=== PATIENT | female | born 1930 | race American Indian/Alaskan Native ===

== ENCOUNTER 2020-10-07 04:09 | Day surgery (SDC) | payer OTHER ==
[2020-10-03 14:59] VITALS: BMI 24.2
[2020-10-07] MEDS ORDERED: ISOSULFAN BLUE 50 MG/5 ML VIAL SQ ONE (08:16)
[2020-10-07] MEDS ORDERED: LIDOCAINE HCL 1%, 10 MG/ML (20ML VIAL) ONE (08:17)
[2020-10-07] MEDS ORDERED: ceFAZolin SODIUM 1 GM VIAL ONE (10:07)
[2020-10-07] MEDS ORDERED: LIDOCAINE HCL/PF 2% SDV 5ML VIAL ONE (10:07)
[2020-10-07] MEDS ORDERED: ceFAZolin SODIUM 1 GM VIAL IVPB ONE (10:58)
[2020-10-07] MEDS ORDERED: ePHEDrine SULFATE 50 MG/1 ML AMPULE ONE (11:12)
[2020-10-07] MEDS ORDERED: ONDANSETRON 4 MG/2 ML VIAL IVPUSH PRN (12:00)
[2020-10-07] MEDS ORDERED: LACTATED RINGERS SOLUTION 1,000 ML IV SCH (12:00)
[2020-10-07] MEDS ORDERED: ACETAMINOPHEN 325 MG TABLET (FP) PO PRN (12:00)
[2020-10-07] MEDS ORDERED: KETOROLAC TROMETHAMINE 15 MG/ML VIAL IM PRN (12:01)
[2020-10-07] MEDS ORDERED: KETOROLAC TROMETHAMINE 30 MG/1 ML VIAL ONE (13:05)
[2020-10-07 15:49] VITALS: BP 130/70; PULSE 69; TEMP 97
== END 2020-10-07 15:40 | disposition home or self-care (01) ==
LOC: JASU-SURG 04:09
PROVIDERS: ATTEND Surgery
PROC: 0HBU0ZZ Excision of Left Breast, Open Approach (ICD-10-PCS; principal; 2020-10-07 10:00)
DX: C50.912 Malignant neoplasm of unspecified site of left female breast (principal)
CPT/HCPCS: 78195-TC; 88307-TC; 94760; A9541

== ENCOUNTER 2020-11-14 07:13 | Day surgery (SDC) | payer OTHER ==
[2020-11-14 15:12] LABS: BASO % 0.9 % (0-2.0); EOS % 3.8 % (0-4.5); HEMATOCRIT 38.4 % (32.4-45.2); HEMOGLOBIN 13.1 GM/dL (10.7-15.3); LYMPH % 29.9 % (8-40); MCH 30.9 pg (25.7-33.7); MCHC 34.1 g/dl (32.0-36.0); MEAN CELL VOLUME 90.6 fl (80-96); MEAN PLT VOLUME 8.3 fl (7.5-11.1); MONO % 8.9 % (3.8-10.2); NEUT % 56.5 % (42.8-82.8); PLATELET COUNT 179 K/MM3 (134-434); RBC 4.25 M/mm3 (3.60-5.2); RDW 14.4 % (11.6-15.6); WHITE BLOOD COUNT 4.5 K/mm3 (4.0-10.0)
[2020-11-14] MEDS ORDERED: ACETAMINOPHEN 325 MG TABLET (FP) PO ONE (15:14)
[2020-11-14] MEDS ORDERED: DIPHENHYDRAMINE 25 MG in SODIUM CHLORIDE 50 ML IVPB ONE (15:30)
[2020-11-14 15:32] LABS: CALCIUM 9.8 mg/dL (8.5-10.1)
[2020-11-14 15:33] LABS: ALBUMIN 3.6 g/dl (3.4-5.0); BLOOD UREA NITROGEN 19.6 mg/dL (7-18)
[2020-11-14 15:36] LABS: CREATININE 0.7 mg/dL (0.55-1.3)
[2020-11-14 15:38] LABS: BILIRUBIN,TOTAL 0.4 mg/dL (0.2-1); TOT PROT 6.8 g/dl (6.4-8.2)
[2020-11-14] MEDS ORDERED: TRASTUZUMAB-ANNS 440 MG in SODIUM CHLORIDE 250 ML IVPB ONE (16:00)
[2020-11-14 17:51] VITALS: TEMP 97.8
[2020-11-14 19:00] VITALS: BP 114/61; PULSE 69
== END 2020-11-14 19:01 | disposition home or self-care (01) ==
LOC: JONCCHEMO 07:13
PROVIDERS: ATTEND Internal Medicine Hematology & Oncology
DX: Z51.11 Encounter for antineoplastic chemotherapy (principal); C50.912 Malignant neoplasm of unspecified site of left female breast
CPT/HCPCS: 36415; 80053; 85025; 96375; 96413

== ENCOUNTER 2020-12-04 11:02 | Day surgery (SDC) | payer OTHER ==
[2020-12-04 16:28] LABS: BASO % 1.1 % (0-2.0); EOS % 3.7 % (0-4.5); HEMATOCRIT 38.3 % (32.4-45.2); HEMOGLOBIN 12.7 GM/dL (10.7-15.3); LYMPH % 24.2 % (8-40); MCH 30.2 pg (25.7-33.7); MCHC 33.2 g/dl (32.0-36.0); MEAN CELL VOLUME 90.8 fl (80-96); MONO % 8.6 % (3.8-10.2); NEUT % 62.4 % (42.8-82.8); PLATELET COUNT 181 10^3/uL (134-434); RBC 4.21 M/mm3 (3.60-5.2); RDW 14.7 % (11.6-15.6); WHITE BLOOD COUNT 5.5 K/mm3 (4.0-10.0)
[2020-12-04] MEDS ORDERED: ACETAMINOPHEN 325 MG TABLET (FP) PO ONE (16:34)
[2020-12-04 16:50] LABS: ALBUMIN 3.7 g/dl (3.4-5.0); BLOOD UREA NITROGEN 19.4 mg/dL (7-18); CALCIUM 10.4 mg/dL (8.5-10.1)
[2020-12-04 16:54] LABS: BILIRUBIN,TOTAL 0.5 mg/dL (0.2-1); CREATININE 0.7 mg/dL (0.55-1.3)
[2020-12-04] MEDS ORDERED: DIPHENHYDRAMINE 25 MG in SODIUM CHLORIDE 50 ML IVPB ONE (17:00)
[2020-12-04] MEDS ORDERED: TRASTUZUMAB ANNS IVPB ONE (17:45)
[2020-12-04] MEDS ORDERED: SODIUM CHLORIDE IVPB ONE (17:45)
[2020-12-04 19:38] VITALS: TEMP 98.2
[2020-12-04 19:41] VITALS: BP 121/74; PULSE 74
== END 2020-12-04 19:30 | disposition home or self-care (01) ==
LOC: JONCCHEMO 11:02
PROVIDERS: ATTEND Internal Medicine Hematology & Oncology
DX: Z51.11 Encounter for antineoplastic chemotherapy (principal); C50.912 Malignant neoplasm of unspecified site of left female breast
CPT/HCPCS: 36415; 80053; 85025; 96375; 96413; Q5117

== ENCOUNTER 2020-12-25 05:17 | Day surgery (SDC) | payer OTHER ==
[2020-12-25] MEDS ORDERED: HYALURONIDASE SQ ONE (10:00)
[2020-12-25] MEDS ORDERED: TRASTUZUMAB SQ ONE (10:00)
[2020-12-25] MEDS ORDERED: [UNRECOGNIZED DRUG - OTHER] SQ ONE (10:00)
[2020-12-25 16:18] LABS: BASO % 0.9 % (0-2.0); EOS % 2.5 % (0-4.5); HEMATOCRIT 38.8 % (32.4-45.2); LYMPH % 29.2 % (8-40); MCH 30.5 pg (25.7-33.7); MCHC 33.6 g/dl (32.0-36.0); MEAN CELL VOLUME 90.8 fl (80-96); MEAN PLT VOLUME 7.1 fl (7.5-11.1); MONO % 8.9 % (3.8-10.2); NEUT % 58.5 % (42.8-82.8); PLATELET COUNT 198 10^3/uL (134-434); RBC 4.27 M/mm3 (3.60-5.2); RDW 14.6 % (11.6-15.6); WHITE BLOOD COUNT 5.5 K/mm3 (4.0-10.0)
[2020-12-25] MEDS ORDERED: ACETAMINOPHEN 325 MG TABLET (FP) PO ONE (16:26)
[2020-12-25] MEDS ORDERED: diphenhydrAMINE HCL 25 MG CAPSULE (FP) PO ONE (16:27)
[2020-12-25 16:41] LABS: ALBUMIN 3.6 g/dl (3.4-5.0); CALCIUM 10.1 mg/dL (8.5-10.1)
[2020-12-25 16:42] LABS: BLOOD UREA NITROGEN 24.6 mg/dL (7-18)
[2020-12-25 16:44] LABS: CREATININE 0.8 mg/dL (0.55-1.3)
[2020-12-25 16:46] LABS: BILIRUBIN,TOTAL 0.5 mg/dL (0.2-1)
[2020-12-25 17:46] VITALS: BP 131/84; PULSE 85; TEMP 98.2
== END 2020-12-25 17:52 | disposition home or self-care (01) ==
LOC: JONCCHEMO 05:17
PROVIDERS: ATTEND Internal Medicine Hematology & Oncology
PROC: 3E013GC Introduction of Other Therapeutic Substance into Subcutaneous Tissue, Percutaneous Approach (ICD-10-PCS; principal; 2020-12-25)
DX: C50.912 Malignant neoplasm of unspecified site of left female breast (principal); Z76.89 Persons encountering health services in other specified circumstances
CPT/HCPCS: 36415; 80053; 85025; 96372; J9356

== ENCOUNTER 2021-01-14 08:43 | Day surgery (SDC) | payer OTHER ==
[2021-01-14] MEDS ORDERED: TRASTUZUMAB SQ ONE (11:00)
[2021-01-14] MEDS ORDERED: HYALURONIDASE SQ ONE (11:00)
[2021-01-14] MEDS ORDERED: [UNRECOGNIZED DRUG - OTHER] SQ ONE (11:00)
[2021-01-14 16:00] LABS: HEMATOCRIT 37.5 % (32.4-45.2); HEMOGLOBIN 12.8 GM/dL (10.7-15.3); LYMPH % 28.2 % (8-40); MCH 31.1 pg (25.7-33.7); MCHC 34.2 g/dl (32.0-36.0); MEAN CELL VOLUME 90.9 fl (80-96); MEAN PLT VOLUME 7.4 fl (7.5-11.1); MONO % 9.7 % (3.8-10.2); NEUT % 57.1 % (42.8-82.8); PLATELET COUNT 179 10^3/uL (134-434); RBC 4.13 M/mm3 (3.60-5.2); RDW 14.4 % (11.6-15.6); WHITE BLOOD COUNT 4.9 K/mm3 (4.0-10.0)
[2021-01-14] MEDS ORDERED: ACETAMINOPHEN 325 MG TABLET (FP) PO ONE (16:35)
[2021-01-14] MEDS ORDERED: diphenhydrAMINE HCL 25 MG CAPSULE (FP) PO ONE (16:36)
[2021-01-14 16:41] LABS: ALBUMIN 3.5 g/dl (3.4-5.0); BILIRUBIN,TOTAL 0.4 mg/dL (0.2-1); BLOOD UREA NITROGEN 22.4 mg/dL (7-18); CALCIUM 9.6 mg/dL (8.5-10.1); CREATININE 0.8 mg/dL (0.55-1.3)
[2021-01-15 11:49] VITALS: BP 128/76; PULSE 74; TEMP 97.5
== END 2021-01-14 17:54 | disposition home or self-care (01) ==
LOC: JONCCHEMO 08:43
PROVIDERS: ATTEND Internal Medicine Hematology & Oncology
DX: Z51.11 Encounter for antineoplastic chemotherapy (principal); C50.912 Malignant neoplasm of unspecified site of left female breast
CPT/HCPCS: 36415; 80053; 85025; 96401; J9356

== ENCOUNTER 2021-02-04 07:08 | Day surgery (SDC) | payer OTHER ==
[2021-02-04] MEDS ORDERED: [UNRECOGNIZED DRUG - OTHER] SQ ONE (10:00)
[2021-02-04] MEDS ORDERED: HYALURONIDASE SQ ONE (10:00)
[2021-02-04] MEDS ORDERED: TRASTUZUMAB SQ ONE (10:00)
[2021-02-04 15:56] LABS: BASO % 0.9 % (0-2.0); EOS % 3.1 % (0-4.5); HEMATOCRIT 35.9 % (32.4-45.2); HEMOGLOBIN 12.3 GM/dL (10.7-15.3); MCH 31.1 pg (25.7-33.7); MCHC 34.4 g/dl (32.0-36.0); MEAN CELL VOLUME 90.5 fl (80-96); MEAN PLT VOLUME 7.3 fl (7.5-11.1); MONO % 8.2 % (3.8-10.2); NEUT % 62.8 % (42.8-82.8); PLATELET COUNT 182 10^3/uL (134-434); RBC 3.96 M/mm3 (3.60-5.2); RDW 13.9 % (11.6-15.6); WHITE BLOOD COUNT 4.9 K/mm3 (4.0-10.0)
[2021-02-04 16:23] LABS: ALBUMIN 3.5 g/dl (3.4-5.0); BLOOD UREA NITROGEN 22.9 mg/dL (7-18)
[2021-02-04 16:26] LABS: CREATININE 0.7 mg/dL (0.55-1.3)
[2021-02-04 16:28] LABS: BILIRUBIN,TOTAL 0.5 mg/dL (0.2-1); TOT PROT 6.9 g/dl (6.4-8.2)
[2021-02-04 17:09] VITALS: BP 126/57; PULSE 79; TEMP 98.2
== END 2021-02-04 17:25 | disposition home or self-care (01) ==
LOC: JONCCHEMO 07:08
PROVIDERS: ATTEND Internal Medicine Hematology & Oncology
DX: Z51.11 Encounter for antineoplastic chemotherapy (principal); C50.912 Malignant neoplasm of unspecified site of left female breast
CPT/HCPCS: 36415; 80053; 85025; 96401; J9356

== ENCOUNTER 2021-03-04 08:12 | Day surgery (SDC) | payer OTHER ==
[2021-03-04] MEDS ORDERED: [UNRECOGNIZED DRUG - OTHER] SQ ONE (10:00)
[2021-03-04] MEDS ORDERED: HYALURONIDASE SQ ONE (10:00)
[2021-03-04] MEDS ORDERED: TRASTUZUMAB SQ ONE (10:00)
[2021-03-04 16:02] LABS: EOS % 5.6 % (0-4.5); HEMATOCRIT 36.7 % (32.4-45.2); HEMOGLOBIN 12.4 GM/dL (10.7-15.3); MCH 30.7 pg (25.7-33.7); MCHC 33.9 g/dl (32.0-36.0); MEAN CELL VOLUME 90.5 fl (80-96); MEAN PLT VOLUME 7.3 fl (7.5-11.1); MONO % 10.4 % (3.8-10.2); PLATELET COUNT 179 10^3/uL (134-434); RBC 4.05 M/mm3 (3.60-5.2); RDW 13.4 % (11.6-15.6); WHITE BLOOD COUNT 4.7 K/mm3 (4.0-10.0)
[2021-03-04 16:19] LABS: CALCIUM 9.6 mg/dL (8.5-10.1)
[2021-03-04 16:20] LABS: ALBUMIN 3.4 g/dl (3.4-5.0); BLOOD UREA NITROGEN 17.6 mg/dL (7-18)
[2021-03-04 16:23] LABS: BILIRUBIN,DIRECT 0.1 mg/dL (0.0-0.2); CREATININE 0.7 mg/dL (0.55-1.3)
[2021-03-04 16:25] LABS: BILIRUBIN,TOTAL 0.4 mg/dL (0.2-1); TOT PROT 6.8 g/dl (6.4-8.2)
[2021-03-04 18:54] VITALS: BP 109/67; PULSE 81; TEMP 97.8
== END 2021-03-04 17:27 | disposition home or self-care (01) ==
LOC: JONCCHEMO 08:12
PROVIDERS: ATTEND Internal Medicine Hematology & Oncology
DX: Z51.11 Encounter for antineoplastic chemotherapy (principal); C50.912 Malignant neoplasm of unspecified site of left female breast
CPT/HCPCS: 36415; 80048; 80076; 85025; 96401; J9356

== ENCOUNTER 2021-03-25 07:32 | Day surgery (SDC) | payer OTHER ==
[2021-03-25] MEDS ORDERED: TRASTUZUMAB SQ ONE (11:00)
[2021-03-25] MEDS ORDERED: [UNRECOGNIZED DRUG - OTHER] SQ ONE (11:00)
[2021-03-25] MEDS ORDERED: HYALURONIDASE SQ ONE (11:00)
[2021-03-25 17:11] LABS: BASO % 1.2 % (0-2.0); EOS % 4.8 % (0-4.5); HEMATOCRIT 37.6 % (32.4-45.2); HEMOGLOBIN 12.6 GM/dL (10.7-15.3); LYMPH % 24.9 % (8-40); MCH 30.4 pg (25.7-33.7); MCHC 33.4 g/dl (32.0-36.0); MEAN CELL VOLUME 90.9 fl (80-96); MEAN PLT VOLUME 8.2 fl (7.5-11.1); MONO % 9.1 % (3.8-10.2); RBC 4.13 M/mm3 (3.60-5.2); WHITE BLOOD COUNT 6.6 K/mm3 (4.0-10.0)
[2021-03-25 17:32] LABS: CALCIUM 9.9 mg/dL (8.5-10.1)
[2021-03-25 17:33] LABS: ALBUMIN 3.4 g/dl (3.4-5.0); BLOOD UREA NITROGEN 15.6 mg/dL (7-18)
[2021-03-25 17:36] LABS: CREATININE 0.7 mg/dL (0.55-1.3); PLATELET COUNT 206 10^3/uL (134-434); PLATELET ESTIMATE ADEQUATE
[2021-03-25 17:38] LABS: BILIRUBIN,TOTAL 0.5 mg/dL (0.2-1); TOT PROT 7.1 g/dl (6.4-8.2)
[2021-03-25 18:09] VITALS: BP 122/78; PULSE 97; TEMP 98.9
== END 2021-03-25 17:55 | disposition home or self-care (01) ==
LOC: JONCCHEMO 07:32
PROVIDERS: ATTEND Internal Medicine Hematology & Oncology
PROC: 3E013GC Introduction of Other Therapeutic Substance into Subcutaneous Tissue, Percutaneous Approach (ICD-10-PCS; principal; 2021-03-25)
DX: C50.912 Malignant neoplasm of unspecified site of left female breast (principal); Z76.89 Persons encountering health services in other specified circumstances
CPT/HCPCS: 36415; 80053; 85025; 96372; J9356

== ENCOUNTER 2021-04-22 07:37 | Day surgery (SDC) | payer OTHER ==
[2021-04-22] MEDS ORDERED: HYALURONIDASE SQ ONE (11:00)
[2021-04-22] MEDS ORDERED: TRASTUZUMAB SQ ONE (11:00)
[2021-04-22] MEDS ORDERED: [UNRECOGNIZED DRUG - OTHER] SQ ONE (11:00)
[2021-04-22] MEDS ORDERED: DENOSUMAB 120 MG/1.7 ML VIAL SQ ONE ×2 (15:58→16:11)
[2021-04-22] MEDS ORDERED: DENOSUMAB 60 MG/ML DISP.SYRIN SQ ONE (16:15)
[2021-04-22 16:44] LABS: BASO % 1.3 % (0-2.0); HEMATOCRIT 35.5 % (32.4-45.2); LYMPH % 22.6 % (8-40); MCH 30.3 pg (25.7-33.7); MCHC 33.7 g/dl (32.0-36.0); MEAN CELL VOLUME 89.7 fl (80-96); MEAN PLT VOLUME 7.9 fl (7.5-11.1); MONO % 10.8 % (3.8-10.2); NEUT % 59.3 % (42.8-82.8); PLATELET COUNT 215 10^3/uL (134-434); RBC 3.96 M/mm3 (3.60-5.2); RDW 13.4 % (11.6-15.6); WHITE BLOOD COUNT 4.8 K/mm3 (4.0-10.0)
[2021-04-22 17:06] LABS: ALBUMIN 3.3 g/dl (3.4-5.0); CALCIUM 9.5 mg/dL (8.5-10.1)
[2021-04-22 17:07] LABS: BLOOD UREA NITROGEN 16.4 mg/dL (7-18)
[2021-04-22 17:10] LABS: CREATININE 0.7 mg/dL (0.55-1.3)
[2021-04-22 17:11] LABS: BILIRUBIN,TOTAL 0.4 mg/dL (0.2-1); TOT PROT 6.8 g/dl (6.4-8.2)
[2021-04-22 18:04] VITALS: BP 121/74; PULSE 76; TEMP 97.9
== END 2021-04-22 18:07 | disposition home or self-care (01) ==
LOC: JONCCHEMO 07:37
PROVIDERS: ATTEND Internal Medicine Hematology & Oncology
PROC: 3E01305 Introduction of Other Antineoplastic into Subcutaneous Tissue, Percutaneous Approach (ICD-10-PCS; principal; 2021-04-22)
PROC: 3E013GC Introduction of Other Therapeutic Substance into Subcutaneous Tissue, Percutaneous Approach (ICD-10-PCS; 2021-04-22)
DX: Z51.11 Encounter for antineoplastic chemotherapy (principal); C50.912 Malignant neoplasm of unspecified site of left female breast
CPT/HCPCS: 36415; 80053; 85025; 96372; 96402; J0897; J9356

== ENCOUNTER 2021-05-21 08:25 | Day surgery (SDC) | payer OTHER ==
[~2021-05-21 08:25] MED LIST: HYALURONIDASE SQ ONE; TRASTUZUMAB SQ ONE; [UNRECOGNIZED DRUG - OTHER] SQ ONE
[2021-05-21 11:36] LABS: BASO % 0.7 % (0-2.0); EOS % 2.4 % (0-4.5); HEMATOCRIT 38.5 % (32.4-45.2); LYMPH % 17.9 % (8-40); MCHC 33.6 g/dl (32.0-36.0); MEAN CELL VOLUME 89.2 fl (80-96); MEAN PLT VOLUME 7.4 fl (7.5-11.1); MONO % 5.9 % (3.8-10.2); NEUT % 73.1 % (42.8-82.8); PLATELET COUNT 195 10^3/uL (134-434); RBC 4.32 M/mm3 (3.60-5.2); RDW 14.3 % (11.6-15.6); WHITE BLOOD COUNT 6.9 K/mm3 (4.0-10.0)
[2021-05-21 11:57] LABS: CALCIUM 10.1 mg/dL (8.5-10.1)
[2021-05-21 11:58] LABS: ALBUMIN 3.4 g/dl (3.4-5.0); BLOOD UREA NITROGEN 18.9 mg/dL (7-18); MAGNESIUM 2.5 mg/dL (1.8-2.4)
[2021-05-21] MEDS ORDERED: HYALURONIDASE SQ ONE (12:00)
[2021-05-21] MEDS ORDERED: [UNRECOGNIZED DRUG - OTHER] SQ ONE (12:00)
[2021-05-21] MEDS ORDERED: TRASTUZUMAB SQ ONE (12:00)
[2021-05-21 12:01] LABS: CREATININE 0.8 mg/dL (0.55-1.3)
[2021-05-21 12:03] LABS: BILIRUBIN,TOTAL 0.7 mg/dL (0.2-1)
[2021-05-21 12:26] LABS: ERYTHROCYTE SEDIMENTATION RATE 36 mm/hr (0-30)
[2021-05-21 14:56] VITALS: PULSE 94; TEMP 98.6
[2021-05-21 15:01] VITALS: BP 102/51
== END 2021-05-21 14:00 | disposition home or self-care (01) ==
LOC: JONCCHEMO 08:25
PROVIDERS: ATTEND Internal Medicine Hematology & Oncology
DX: Z51.11 Encounter for antineoplastic chemotherapy (principal); C50.912 Malignant neoplasm of unspecified site of left female breast
CPT/HCPCS: 36415; 80053; 82746; 83615; 83735; 85025; 85651; 96401; J9356

== ENCOUNTER 2021-06-10 07:00 | Day surgery (SDC) | payer OTHER ==
[2021-06-10 16:34] LABS: BASO % 0.6 % (0-2.0); EOS % 0.7 % (0-4.5); HEMATOCRIT 37.7 % (32.4-45.2); HEMOGLOBIN 12.7 GM/dL (10.7-15.3); LYMPH % 17.1 % (8-40); MCH 30.2 pg (25.7-33.7); MCHC 33.8 g/dl (32.0-36.0); MEAN CELL VOLUME 89.2 fl (80-96); MONO % 6.2 % (3.8-10.2); NEUT % 75.4 % (42.8-82.8); PLATELET COUNT 184 10^3/uL (134-434); RBC 4.22 M/mm3 (3.60-5.2); RDW 14.6 % (11.6-15.6); WHITE BLOOD COUNT 6.1 K/mm3 (4.0-10.0)
[2021-06-10 16:52] LABS: ALBUMIN 3.7 g/dl (3.4-5.0); BLOOD UREA NITROGEN 26.2 mg/dL (7-18); MAGNESIUM 2.4 mg/dL (1.8-2.4)
[2021-06-10 16:56] LABS: CREATININE 0.8 mg/dL (0.55-1.3)
[2021-06-10 16:58] LABS: BILIRUBIN,TOTAL 0.4 mg/dL (0.2-1); TOT PROT 7.2 g/dl (6.4-8.2)
[2021-06-10] MEDS ORDERED: TRASTUZUMAB SQ ONE (17:00)
[2021-06-10] MEDS ORDERED: HYALURONIDASE SQ ONE (17:00)
[2021-06-10] MEDS ORDERED: [UNRECOGNIZED DRUG - OTHER] SQ ONE (17:00)
[2021-06-10 18:42] VITALS: BP 160/83; PULSE 92; TEMP 98.3
== END 2021-06-10 18:00 | disposition home or self-care (01) ==
LOC: JONCCHEMO 07:00
PROVIDERS: ATTEND Internal Medicine Hematology & Oncology
DX: Z51.11 Encounter for antineoplastic chemotherapy (principal); C50.912 Malignant neoplasm of unspecified site of left female breast
CPT/HCPCS: 36415; 80053; 83735; 85025; 96401; J9356

== ENCOUNTER 2021-07-16 08:18 | Day surgery (SDC) | payer OTHER ==
[2021-07-16] MEDS ORDERED: TRASTUZUMAB SQ ONE (12:00)
[2021-07-16] MEDS ORDERED: [UNRECOGNIZED DRUG - OTHER] SQ ONE (12:00)
[2021-07-16] MEDS ORDERED: HYALURONIDASE SQ ONE (12:00)
[2021-07-16 16:08] LABS: EOS % 2.7 % (0-4.5); HEMATOCRIT 35.9 % (32.4-45.2); HEMOGLOBIN 12.1 GM/dL (10.7-15.3); LYMPH % 27.5 % (8-40); MCH 29.7 pg (25.7-33.7); MCHC 33.8 g/dl (32.0-36.0); MEAN CELL VOLUME 87.9 fl (80-96); MEAN PLT VOLUME 7.6 fl (7.5-11.1); NEUT % 58.8 % (42.8-82.8); PLATELET COUNT 205 10^3/uL (134-434); RBC 4.09 M/mm3 (3.60-5.2); RDW 15.1 % (11.6-15.6); WHITE BLOOD COUNT 5.6 K/mm3 (4.0-10.0)
[2021-07-16 16:31] LABS: ALBUMIN 3.4 g/dl (3.4-5.0); BLOOD UREA NITROGEN 25.6 mg/dL (7-18); CALCIUM 10.4 mg/dL (8.5-10.1)
[2021-07-16 16:34] LABS: CREATININE 0.8 mg/dL (0.55-1.3)
[2021-07-16 16:36] LABS: BILIRUBIN,TOTAL 0.4 mg/dL (0.2-1); TOT PROT 6.8 g/dl (6.4-8.2)
[2021-07-16 17:44] VITALS: BP 126/70; PULSE 98; TEMP 98.3
== END 2021-07-16 17:45 | disposition home or self-care (01) ==
LOC: JONCCHEMO 08:18
PROVIDERS: ATTEND Internal Medicine Hematology & Oncology
DX: Z51.11 Encounter for antineoplastic chemotherapy (principal); C50.912 Malignant neoplasm of unspecified site of left female breast
CPT/HCPCS: 36415; 80053; 85025; 96401; J9356

== ENCOUNTER 2021-08-05 14:54 | Day surgery (SDC) | payer OTHER ==
[2021-08-05] MEDS ORDERED: [UNRECOGNIZED DRUG - OTHER] SQ ONE (16:00)
[2021-08-05] MEDS ORDERED: HYALURONIDASE SQ ONE (16:00)
[2021-08-05] MEDS ORDERED: TRASTUZUMAB SQ ONE (16:00)
[2021-08-05 16:04] LABS: BASO % 0.9 % (0-2.0); HEMATOCRIT 38.3 % (32.4-45.2); HEMOGLOBIN 12.7 GM/dL (10.7-15.3); LYMPH % 29.4 % (8-40); MCH 29.6 pg (25.7-33.7); MCHC 33.1 g/dl (32.0-36.0); MEAN CELL VOLUME 89.5 fl (80-96); MEAN PLT VOLUME 7.9 fl (7.5-11.1); MONO % 8.5 % (3.8-10.2); NEUT % 57.2 % (42.8-82.8); PLATELET COUNT 171 10^3/uL (134-434); RBC 4.27 M/mm3 (3.60-5.2); WHITE BLOOD COUNT 5.2 K/mm3 (4.0-10.0)
[2021-08-05 16:24] LABS: ALBUMIN 3.5 g/dl (3.4-5.0); BLOOD UREA NITROGEN 16.8 mg/dL (7-18); CALCIUM 9.7 mg/dL (8.5-10.1)
[2021-08-05 16:27] LABS: CREATININE 0.9 mg/dL (0.55-1.3)
[2021-08-05 16:29] LABS: BILIRUBIN,TOTAL 0.4 mg/dL (0.2-1); TOT PROT 6.7 g/dl (6.4-8.2)
[2021-08-05 17:07] VITALS: TEMP 98
[2021-08-05 17:14] VITALS: BP 122/79; PULSE 97
== END 2021-08-05 17:10 | disposition home or self-care (01) ==
LOC: JONCCHEMO 14:54
PROVIDERS: ATTEND Internal Medicine Hematology & Oncology
DX: Z51.11 Encounter for antineoplastic chemotherapy (principal); C50.912 Malignant neoplasm of unspecified site of left female breast; Z17.0 Estrogen receptor positive status [ER+]
CPT/HCPCS: 36415; 80053; 85025; 96401; J9356

== ENCOUNTER 2021-08-26 07:47 | Day surgery (SDC) | payer OTHER ==
[2021-08-26] MEDS ORDERED: HYALURONIDASE SQ ONE (12:00)
[2021-08-26] MEDS ORDERED: TRASTUZUMAB SQ ONE (12:00)
[2021-08-26] MEDS ORDERED: [UNRECOGNIZED DRUG - OTHER] SQ ONE (12:00)
[2021-08-26 14:32] LABS: BASO % 0.8 % (0-2.0); EOS % 2.8 % (0-4.5); HEMATOCRIT 36.6 % (32.4-45.2); HEMOGLOBIN 12.3 GM/dL (10.7-15.3); LYMPH % 26.8 % (8-40); MCH 29.9 pg (25.7-33.7); MCHC 33.6 g/dl (32.0-36.0); MEAN CELL VOLUME 89.1 fl (80-96); MEAN PLT VOLUME 7.5 fl (7.5-11.1); MONO % 8.5 % (3.8-10.2); NEUT % 61.1 % (42.8-82.8); PLATELET COUNT 189 10^3/uL (134-434); RBC 4.11 M/mm3 (3.60-5.2); RDW 14.7 % (11.6-15.6); WHITE BLOOD COUNT 5.3 K/mm3 (4.0-10.0)
[2021-08-26 14:53] LABS: ALBUMIN 3.5 g/dl (3.4-5.0); BLOOD UREA NITROGEN 17.7 mg/dL (7-18); CALCIUM 10.4 mg/dL (8.5-10.1)
[2021-08-26 14:57] LABS: CREATININE 0.8 mg/dL (0.55-1.3)
[2021-08-26 14:58] LABS: BILIRUBIN,TOTAL 0.5 mg/dL (0.2-1); TOT PROT 6.6 g/dl (6.4-8.2)
[2021-08-26 16:45] VITALS: BP 112/50; PULSE 84; TEMP 98.3
== END 2021-08-26 17:00 | disposition home or self-care (01) ==
LOC: JONCCHEMO 07:47
PROVIDERS: ATTEND Internal Medicine Hematology & Oncology
DX: Z51.11 Encounter for antineoplastic chemotherapy (principal); C50.912 Malignant neoplasm of unspecified site of left female breast; Z17.0 Estrogen receptor positive status [ER+]
CPT/HCPCS: 36415; 80053; 85025; 96401; J9356

== ENCOUNTER 2021-09-16 08:29 | Day surgery (SDC) | payer OTHER ==
[2021-09-16] MEDS ORDERED: HYALURONIDASE SQ ONE (12:00)
[2021-09-16] MEDS ORDERED: TRASTUZUMAB SQ ONE (12:00)
[2021-09-16] MEDS ORDERED: [UNRECOGNIZED DRUG - OTHER] SQ ONE (12:00)
[2021-09-16 14:39] LABS: BASO % 0.6 % (0-2.0); EOS % 2.4 % (0-4.5); HEMATOCRIT 35.9 % (32.4-45.2); HEMOGLOBIN 12.4 GM/dL (10.7-15.3); LYMPH % 22.5 % (8-40); MCHC 34.5 g/dl (32.0-36.0); MEAN CELL VOLUME 89.9 fl (80-96); MEAN PLT VOLUME 7.3 fl (7.5-11.1); MONO % 7.8 % (3.8-10.2); NEUT % 66.7 % (42.8-82.8); PLATELET COUNT 171 10^3/uL (134-434); RDW 14.5 % (11.6-15.6); WHITE BLOOD COUNT 5.8 K/mm3 (4.0-10.0)
[2021-09-16 14:55] LABS: BLOOD UREA NITROGEN 17.5 mg/dL (7-18); CALCIUM 9.8 mg/dL (8.5-10.1)
[2021-09-16 14:56] LABS: ALBUMIN 3.4 g/dl (3.4-5.0)
[2021-09-16 14:59] LABS: CREATININE 0.7 mg/dL (0.55-1.3)
[2021-09-16 15:00] LABS: BILIRUBIN,TOTAL 0.4 mg/dL (0.2-1)
[2021-09-16 15:01] LABS: TOT PROT 6.6 g/dl (6.4-8.2)
[2021-09-16 15:49] VITALS: BP 135/68; PULSE 85; TEMP 98.1
== END 2021-09-16 16:05 | disposition home or self-care (01) ==
LOC: JONCCHEMO 08:29
PROVIDERS: ATTEND Internal Medicine Hematology & Oncology
DX: Z51.11 Encounter for antineoplastic chemotherapy (principal); C50.912 Malignant neoplasm of unspecified site of left female breast; Z17.0 Estrogen receptor positive status [ER+]
CPT/HCPCS: 36415; 80053; 85025; 96401; J9356

== ENCOUNTER 2021-10-14 07:07 | Day surgery (SDC) | payer OTHER ==
[2021-10-14] MEDS ORDERED: [UNRECOGNIZED DRUG - OTHER] SQ ONE (10:00)
[2021-10-14] MEDS ORDERED: HYALURONIDASE SQ ONE (10:00)
[2021-10-14] MEDS ORDERED: TRASTUZUMAB SQ ONE (10:00)
[2021-10-14 15:14] LABS: EOS % 4.1 % (0-4.5); HEMATOCRIT 37.5 % (32.4-45.2); HEMOGLOBIN 12.5 GM/dL (10.7-15.3); MCHC 33.3 g/dl (32.0-36.0); MEAN CELL VOLUME 90.3 fl (80-96); MEAN PLT VOLUME 7.6 fl (7.5-11.1); MONO % 9.3 % (3.8-10.2); NEUT % 58.6 % (42.8-82.8); PLATELET COUNT 172 10^3/uL (134-434); RBC 4.15 M/mm3 (3.60-5.2); RDW 14.4 % (11.6-15.6); WHITE BLOOD COUNT 5.1 K/mm3 (4.0-10.0)
[2021-10-14 15:35] LABS: ALBUMIN 3.4 g/dl (3.4-5.0); BLOOD UREA NITROGEN 18.8 mg/dL (7-18); CALCIUM 10.3 mg/dL (8.5-10.1)
[2021-10-14 15:38] LABS: CREATININE 0.8 mg/dL (0.55-1.3)
[2021-10-14 15:40] LABS: BILIRUBIN,TOTAL 0.4 mg/dL (0.2-1); TOT PROT 6.5 g/dl (6.4-8.2)
[2021-10-14 18:41] VITALS: BP 127/53; PULSE 83; TEMP 98.1
== END 2021-10-14 17:00 | disposition home or self-care (01) ==
LOC: JONCCHEMO 07:07
PROVIDERS: ATTEND Internal Medicine Hematology & Oncology
DX: Z51.11 Encounter for antineoplastic chemotherapy (principal); C50.912 Malignant neoplasm of unspecified site of left female breast; Z17.0 Estrogen receptor positive status [ER+]
CPT/HCPCS: 36415; 80053; 85025; 96401; J9356

== ENCOUNTER 2021-11-04 06:32 | Day surgery (SDC) | payer OTHER ==
[2021-11-04] MEDS ORDERED: [UNRECOGNIZED DRUG - OTHER] SQ ONE (10:00)
[2021-11-04] MEDS ORDERED: HYALURONIDASE SQ ONE (10:00)
[2021-11-04] MEDS ORDERED: TRASTUZUMAB SQ ONE (10:00)
[2021-11-04 14:45] LABS: BASO % 0.8 % (0-2.0); EOS % 3.7 % (0-4.5); HEMATOCRIT 35.6 % (32.4-45.2); HEMOGLOBIN 12.1 GM/dL (10.7-15.3); LYMPH % 27.5 % (8-40); MCH 30.7 pg (25.7-33.7); MEAN CELL VOLUME 90.3 fl (80-96); MEAN PLT VOLUME 7.4 fl (7.5-11.1); MONO % 8.4 % (3.8-10.2); NEUT % 59.6 % (42.8-82.8); PLATELET COUNT 167 10^3/uL (134-434); RBC 3.95 M/mm3 (3.60-5.2); RDW 13.9 % (11.6-15.6); WHITE BLOOD COUNT 4.7 K/mm3 (4.0-10.0)
[2021-11-04 15:06] LABS: CALCIUM 9.7 mg/dL (8.5-10.1)
[2021-11-04 15:07] LABS: ALBUMIN 3.4 g/dl (3.4-5.0)
[2021-11-04 15:10] LABS: CREATININE 0.8 mg/dL (0.55-1.3)
[2021-11-04 15:11] LABS: TOT PROT 6.4 g/dl (6.4-8.2)
[2021-11-04 15:12] LABS: BILIRUBIN,TOTAL 0.4 mg/dL (0.2-1)
[2021-11-04] MEDS ORDERED: DENOSUMAB 60 MG/ML DISP.SYRIN SQ ONE (15:45)
[2021-11-04 16:50] VITALS: BP 120/76; PULSE 76; TEMP 98.2
== END 2021-11-04 16:30 | disposition home or self-care (01) ==
LOC: JONCCHEMO 06:32
PROVIDERS: ATTEND Internal Medicine Hematology & Oncology
DX: Z51.11 Encounter for antineoplastic chemotherapy (principal); C50.912 Malignant neoplasm of unspecified site of left female breast; Z17.0 Estrogen receptor positive status [ER+]
CPT/HCPCS: 36415; 80053; 85025; 96401; J0897; J9356